=== PATIENT | female | born 1970 | race African-American/Black ===

== ENCOUNTER 2019-04-03 09:40 | Emergency (ER) | payer OTHER ==
[~2019-04-03] VITALS: Ht 170.2 cm; Wt 81.7 kg
[~2019-04-03 09:40] MED LIST: APAP500; CEFUROXIME250 MG PO; GLUCOSAMINE1000 MG; IBUPROFEN 200200 M1 PO; METFORMIN HCL500 MG PO; NAPROSYN500 MG PO; NICOTINE TRANSD14 M1 TD; NOHOMEMEDICATIONS; NORCO 5-325 TA1 EACH PO; SENOKOT-S1 TA1 PO; TYLENOL325 MG PO
[2019-04-03] MEDS ORDERED: NORCO 5-325 TA1 EACH PO (11:52)
[2019-04-03] MEDS ORDERED: IBUPROFEN 600600 M1 PO (11:52)
[2019-04-03] MEDS ORDERED: BACTRIM DS TAB1 EACH PO (11:52)
[2019-04-03 12:02] VITALS: BP 133/84
== END 2019-04-03 12:04 | disposition home or self-care (01) ==
LOC: ER 09:40
DX: L02.31 Cutaneous abscess of buttock (principal); E11.9 Type 2 diabetes mellitus without complications; K21.9 Gastro-esophageal reflux disease without esophagitis; Z88.0 Allergy status to penicillin; Z88.8 Allergy status to other drugs, medicaments and biological substances; Z91.018 Allergy to other foods; Z87.442 Personal history of urinary calculi

== ENCOUNTER 2019-05-15 22:43 | Emergency (ER) | payer OTHER ==
[~2019-05-15] VITALS: Ht 170.2 cm; Wt 83.9 kg
[~2019-05-15 22:43] MED LIST changes: +BACTRIM DS TAB1 EACH PO; +IBUPROFEN 600600 M1 PO
[2019-05-15] MEDS ORDERED: BACTRIM DS TAB1 EACH PO (23:57)
[2019-05-15] MEDS ORDERED: NORCO 5-325 TA1 EAC1 PO (23:58)
[2019-05-16 00:09] VITALS: BP 102/54
== END 2019-05-16 00:23 | disposition home or self-care (01) ==
LOC: ER 22:43
DX: L02.31 Cutaneous abscess of buttock (principal); E11.9 Type 2 diabetes mellitus without complications; K21.9 Gastro-esophageal reflux disease without esophagitis; Z88.0 Allergy status to penicillin; Z88.8 Allergy status to other drugs, medicaments and biological substances

== ENCOUNTER 2019-08-03 09:31 | Emergency (ER) | payer OTHER ==
[~2019-08-03] VITALS: Ht 170.2 cm; Wt 86.2 kg
[~2019-08-03 09:31] MED LIST changes: +NORCO 5-325 TA1 EAC1 PO
[2019-08-03] MEDS ORDERED: NAPROSYN500 MG PO (12:25)
[2019-08-03] MEDS ORDERED: KEFLEX500 M1 PO (12:25)
[2019-08-03] MEDS ORDERED: FLAGYL500 M1 PO (12:25)
[2019-08-03] MEDS ORDERED: NORCO 5-325 TA1 EAC1 PO (12:25)
[2019-08-03 12:42] VITALS: BP 134/57
== END 2019-08-03 12:45 | disposition home or self-care (01) ==
LOC: ER 09:31
DX: L05.01 Pilonidal cyst with abscess (principal); F17.210 Nicotine dependence, cigarettes, uncomplicated; E11.9 Type 2 diabetes mellitus without complications; K21.9 Gastro-esophageal reflux disease without esophagitis; Z88.0 Allergy status to penicillin; Z91.018 Allergy to other foods; Z88.8 Allergy status to other drugs, medicaments and biological substances; Z87.442 Personal history of urinary calculi